=== PATIENT | female | born 1935 | race Hispanic/Latino ===

== ENCOUNTER 2021-09-13 10:40 | Outpatient (CLI) | payer MEDICARE, BC | END 2021-09-13 10:41 | disposition home or self-care (01) | LOC: LABBT 10:40 | PROVIDERS: ATTEND Specialist | DX: Z20.822 Contact with and (suspected) exposure to COVID-19 (principal) | CPT/HCPCS: 87811 ==

== ENCOUNTER 2021-09-16 08:20 | Day surgery (SDC) | payer MEDICARE, BC ==
[2021-09-13 10:16] VITALS: BMI 24.0
[2021-09-16] MEDS ORDERED: Fentanyl 100 MCG/2 ML VIAL ONE (08:36)
[2021-09-16] MEDS ORDERED: Sodium Bicarbonate 2.5 MEQ/5 ML VIAL ONE (08:36)
[2021-09-16] MEDS ORDERED: Lidocaine 1% PF 5 ML VIAL ONE (08:36)
[2021-09-16] MEDS ORDERED: Midazolam HCl 2 mg/2 ml Vial ONE (08:36)
[2021-09-16 09:02] LABS: Hemoglobin 15.8 g/dL (12.0-16.0); Mean Corpuscular HGB CONC 31.3 g/dL (32.0-36.0); Mean Corpuscular Hemoglobin 30.3 pg (27.0-31.0); Mean Corpuscular Volume 96.9 fL (78.0-98.0); Mean Platelet Volume 7.9 fL (7.4-10.4); Platelet Count 247 thou/uL (130-400); RBC Distribution Width 13.3 % (11.5-14.5); White Blood Cell (WBC) Count 19.7 thou/uL (4.8-10.8)
[2021-09-16 09:04] LABS: PTT 30.1 sec (22.9-36.1); Prothrombin Time 13.4 sec (12.0-14.7)
[2021-09-16 09:28] LABS: Band 2 % (5-11); Eosinophils 1 % (0-10); Lymphocytes 55 % (21-51); MDiff Complete? YES; Monocytes 2 % (0-10); Neutrophil 38 % (42-75); Platelet Morphology Comment Appears Adequate; RBC Morphology Normal; Reactive Lymphocytes 1 % (0-10); Reflex for Review?? YES
[2021-09-16 11:20] VITALS: BP 178/99; TEMP 97.3
== END 2021-09-16 12:55 | disposition home or self-care (01) ==
LOC: CT 08:20
PROVIDERS: ATTEND Specialist
PROC: 0BBF3ZX Excision of Right Lower Lung Lobe, Percutaneous Approach, Diagnostic (ICD-10-PCS; principal; 2021-09-16)
DX: C34.31 Malignant neoplasm of lower lobe, right bronchus or lung (principal); I10 Essential (primary) hypertension; K21.9 Gastro-esophageal reflux disease without esophagitis; E78.5 Hyperlipidemia, unspecified; Z79.83 Long term (current) use of bisphosphonates; Z79.899 Other long term (current) drug therapy
CPT/HCPCS: 32408; 36415; 71046; 77002; 85025; 85060; 85610; 85730; 88305; 88333; 88334; 88341; 88342; J2250; J3010

== ENCOUNTER 2021-09-19 12:30 | Outpatient (CLI) | payer MEDICARE, BC | END 2021-09-19 12:31 | disposition home or self-care (01) | LOC: PET 12:30 | PROVIDERS: ATTEND Internal Medicine Hematology & Oncology | DX: C34.81 Malignant neoplasm of overlapping sites of right bronchus and lung (principal); C91.10 Chronic lymphocytic leukemia of B-cell type not having achieved remission; C77.9 Secondary and unspecified malignant neoplasm of lymph node, unspecified; C78.2 Secondary malignant neoplasm of pleura; C79.71 Secondary malignant neoplasm of right adrenal gland | CPT/HCPCS: 78815; A9552 ==

== ENCOUNTER 2021-10-01 09:42 | Outpatient (CLI) | payer MEDICARE, BC | END 2021-10-01 09:43 | disposition home or self-care (01) | LOC: SCSMRI 09:42 | PROVIDERS: ATTEND Internal Medicine Hematology & Oncology | DX: C34.81 Malignant neoplasm of overlapping sites of right bronchus and lung (principal); C91.10 Chronic lymphocytic leukemia of B-cell type not having achieved remission; G93.9 Disorder of brain, unspecified | CPT/HCPCS: 70553; 82565 ==

== ENCOUNTER 2021-12-03 12:30 | Outpatient (CLI) | payer MEDICARE, BC | END 2021-12-03 12:31 | disposition home or self-care (01) | LOC: PET 12:30 | PROVIDERS: ATTEND Internal Medicine Hematology & Oncology | DX: C34.81 Malignant neoplasm of overlapping sites of right bronchus and lung (principal); C91.10 Chronic lymphocytic leukemia of B-cell type not having achieved remission | CPT/HCPCS: 78815; A9552 ==

== ENCOUNTER → 2022-03-11 | Outpatient (CLI) | payer MEDICARE, BC | LOC: PET 11:00 | PROVIDERS: ATTEND Internal Medicine Hematology & Oncology | DX: C34.81 Malignant neoplasm of overlapping sites of right bronchus and lung (principal); R91.1 Solitary pulmonary nodule; Z92.21 Personal history of antineoplastic chemotherapy | CPT/HCPCS: 78815; A9552 ==

== ENCOUNTER 2022-05-26 12:11 | Outpatient (CLI) | payer MEDICARE, BC | END 2022-05-26 12:12 | disposition home or self-care (01) | LOC: SCSMRI 12:11 | PROVIDERS: ATTEND Internal Medicine Hematology & Oncology | DX: M84.48XA Pathological fracture, other site, initial encounter for fracture (principal); M54.50 Low back pain, unspecified; C34.81 Malignant neoplasm of overlapping sites of right bronchus and lung; C91.10 Chronic lymphocytic leukemia of B-cell type not having achieved remission; M51.36 Other intervertebral disc degeneration, lumbar region; M48.061 Spinal stenosis, lumbar region without neurogenic claudication | CPT/HCPCS: 72158 ==